=== PATIENT | male | born 1975 | race Caucasian/White ===

== ENCOUNTER → 2020-05-31 14:33 | Outpatient (CLI) | payer OTHER, SELFPAY ==
--- NOTE | ~2020-05-31 | MR_ITS ---
EXAMINATION: MR shoulder LT w con DATE: 05/31/2020 16:02 INDICATION: Left shoulder pain TECHNIQUE: Magnetic resonance imaging (MRI) of the left shoulder was performed following intra-artic ular gadolinium contrast injection and without intravenous contrast. Details of the glenohumeral join t injection have been dictated separately. Sequences included axial T2-weighted FS FSE, axial T1-anam ghted FS FSE, coronal oblique T1-weighted FS FSE, coronal oblique T2-weighted FSE, sagittal T2-weight ed FS FSE, sagittal T1-weighted FSE, and ABER (abduction external rotation) T1-weighted FS FSE. COMPARISON: None. FINDINGS: Coracoacromial arch: The acromion undersurface is curved in morphology (type II). The coracoacromial ligament is normal. Mild acromioclavicular osteoarthritis. Rotator cuff: Mild supraspinatus tendinopathy with shallow articular sided tear with fraying of the articular side of the tendon and thin linear contrast imbibition extending to the bursal side of the tendon without a large or well-defined measurable tear defect. The infraspinatus and teres minor tendons are normal. Mild contrast imbibition in the subscapularis tendon which appears otherwise normal and which is lik rose related to minimal extravasation at the site of injection. There is diffuse increased fluid signa l and minimal fatty atrophy of the infraspinatus muscle belly likely related to denervation change re sulting from impingement of the infraspinatus nerve by a large partially contrast filled paralabral c yst at the spinal glenoid notch which measures 2.6 x 2.6 x 1.6 cm. Remainder of the musculature of th e rotator cuff/shoulder girdle is normal. Biceps tendon, glenoid labrum and glenohumeral cartilage: Long head of the biceps tendon is intact. There is a tear of the glenoid labrum beginning anteriorly at the 1:00 position and extending posteriorly and inferiorly to the 8:00 position. The previous note d large paralabral cyst arises at the 9:30-10:00 position and extends medially across and inferomedia l to the spinoglenoid notch. There is partial thickness cartilage loss with smooth chondral surface a long the cephalad third of the glenoid. Bones and other: Normal marrow signal with no edema, fracture or abnormal marrow replacing process. No abnormal fluid signal in the subacromial/subdeltoid bursa to suggest bursitis. IMPRESSION: 1. SLAP tear of the 1:00-8:00 position of the superior and posterior glenoid labrum with large parala bral cyst arising at the 9:30-10:00 position which extends into the spinal glenoid notch and impinges upon the infraspinatus nerve as evidenced by denervation changes with mild increased fluid signal an d minimal atrophy of the infraspinatus muscle belly. 2. Mild supraspinatus tendinopathy with shallow articular sided tear/fraying. 3. Mild glenohumeral and acromioclavicular osteoarthritis. Reviewed, dictated and finalized at location A. IMPRESSION: 1. SLAP tear of the 1:00-8:00 position of the superior and posterior glenoid la emanuel with large paralabral cyst arising at the 9:30-10:00 position which extend s into the spinal glenoid notch and impinges upon the infraspinatus nerve as ev idenced by denervation changes with mild increased fluid signal and minimal atr ophy of the infraspinatus muscle belly. 2. Mild supraspinatus tendinopathy with shallow articular sided tear/fraying. 3. Mild glenohumeral and acromioclavicular osteoarthritis.
--- NOTE | ~2020-05-31 | XR_ITS ---
EXAMINATION: XR fl inj shoulder LT - MR/CT DATE: 05/31/2020 15:31 INDICATION: Left shoulder pain. No prior dislocation or surgery. TECHNIQUE: A time-out was performed to verify the patient's name, date of , and procedure to b e performed. The procedure including the risks, benefits, and alternatives was discussed with the pat ient. Risks discussed included bleeding and infection. The patient understood the risks and agreed to proceed. The skin overlying the left glenohumeral joint was prepped and draped in usual sterile fash ion. Anesthetic was administered with 1% lidocaine subcutaneously. A 22 G needle was advanced under fluoroscopic guidance into the joint. Subsequently, injectate consisting of 12 mL of 1:200 Multihan ce, 1:4 1% lidocaine, and 1:4 Omnipaque 240 was instilled. The needle was removed and the entry site was cleaned and dressed. There were no immediate complications. Fluoroscopy exposure time was 1.0 m inutes. The total number of images was 3. FINDINGS: Real-time fluoroscopy demonstrates the needle and contrast in the left glenohumeral joint. IMPRESSION: 1. Successful left glenohumeral joint injection of contrast for subsequent MR arthrography. Reviewed, dictated and finalized at location B. IMPRESSION: 1. Successful left glenohumeral joint injection of contrast for subsequent MR a rthrography.
== END ==
PROVIDERS: PCP Family Medicine; Visit Provider Orthopaedic Surgery
DX: M19.012 Primary osteoarthritis, left shoulder (principal); S43.432A Superior glenoid labrum lesion of left shoulder, initial encounter; X58.XXXA Exposure to other specified factors, initial encounter
CPT/HCPCS: 23350; 73222; A9577; Q9966

== ENCOUNTER → 2022-12-26 13:42 | Outpatient (CLI) | payer OTHER, SELFPAY ==
--- NOTE | ~2022-12-26 | XR_ITS ---
Right Knee Technique: AP, lateral, and oblique views were obtained. Clinical History: Pain Findings: No fracture or dislocation is seen. Osseous alignment is anatomic. Joint spaces are preserv ed without degenerative or erosive change. Soft tissues are unremarkable. No joint effusion is seen. Impression: Unremarkable right knee radiographs. Reviewed, dictated and finalized at [facility]. [employer] Impression: Unremarkable right knee radiographs.
== END ==
PROVIDERS: PCP Nurse Practitioner Family; Visit Provider Nurse Practitioner Family
DX: M25.561 Pain in right knee (principal)
CPT/HCPCS: 73564

== ENCOUNTER 2023-04-10 10:18 | Outpatient (CLI) | payer OTHER, SELFPAY ==
--- NOTE | 2023-05-01 16:49 | WPDHOMESLEEP ---
Sleep Study - Home Unattended Date of Study: 04/10/23 Ordering Provider: Yves Chiu MD Interpreting Provider: Christina Marshall MD Home Sleep Study Type: Watch PAT Height: 1.73 m Weight: 107.955 kg Body Mass Index: 36.1 Neck Circumference (inches): 17 [place]: 3 Reason for Sleep Study Hypersomnia, does not feel rested on waking Sleep History Shaun Almonte is a 48-year-old man with poor quality sleep. He works as a conductor/leading firefighter. he does not feel rested when he wakes in the morning. He had a sleep study through his dentist a few years ago which showed mild sleep apnea. He wants to be recheck for sleep apnea again. We do not have those prior sleep study records. He occasionally has fluttering in his chest and occasional indigestion. He does not wake to go to the bathroom at night. He does not have erectile dysfunction. He has a history of anxiety and depression as well as hypertension.He never awakens from sleep feeling short of breath. He never wakes at night with heartburn, belching or coughing.??He occasionally snores loudly enough that others complain. He never has trouble sleeping when he has a cold. He never wakes up gasping for breath during the night. He never has breathing problems at night. He rarely sweats excessively at night. He rarely notices his heart pounding or beating irregularly during the night. He never falls asleep involuntarily, never falls asleep while driving. He never experiences loss of muscle tone with strong emotion. He never has daytime difficulty at work due to excessive sleepiness. He feels paralyzed on waking or falling asleep. He never experiences vivid dreams upon waking or falling asleep. He never feels afraid of going to sleep. He rarely has nightmares. He rarely recalls his dreams. He has thoughts racing through his mind. He occasionally feels sad or depressed. He rarely feels anxiety. He never notices parts of his body jerk. He never kicks during the night. He never feels crawling or aching feelings in his legs. He never feels leg pain at night. He never has morning jaw pain, however he is not sure if he grinds his teeth at night. He rarely feels bothered by pain during the day, never awakened by pain during the night. He occasionally wakes up feeling stiff in the morning, and he occasionally wakes feeling sore or achy. He never awakens with pain in his neck, spine, or joints. Normal bedtime is between midnight and 1:00 a.m., falling asleep within 10 minute, usually not waking at all during the night. Wake time is between 8:00 a.m. and 10:00 a.m.. He typically gets between 6 and 8 hours of sleep per night. He takes an occasional nap in the day and a short nap lasting 10-15 minutes may be refreshing. He is usually drowsy for 1 hour after waking. Feels better in the afternoon compared to other times of day. Habits:??Tobacco: Former smoker, now he vapes Caffeine: 2-4 cups per day. Alcohol: 2-3 beverages per day Recreational substances: none PMFSH Past Medical History Medical History (Updated 05/01/23 @ 17:00 by Christina Marshall MD) Abnormal fasting glucose Glucose 87 with hemoglobin A1c 5.1 on 09/13/2021. Glucose 105 with hemoglobin A1c 5.0 on 04/04/2023. Abnormal serum iron level iron normal at 153 with 47% saturation on 09/13/2021. Blood typing encounter (09/13/21) blood type is O positive BMI 33.0-33.9,adult BMI 34.0-34.9,adult BMI 36.0-36.9,adult Chronic anxiety Chronic depression Colon cancer screening Encounter for prostate cancer screening PSA 1.24 on 09/13/2021. The PSA 1.53 on 04/04/2023. Encounter for wellness examination in adult Exposure to COVID-19 virus Furuncle of axilla Hypersomnia Hypertension Left shoulder pain Obesity (BMI 30-39.9) Obesity (BMI 30.0-34.9) Paresthesia Right knee pain STD exposure STD screening on 04/04/2023 was negative. Vaping nicotine dependence, non-tobacco product Family History Family History (Reviewed 04/30
[2023-05-01 17:05] VITALS: BMI 36.1
== END 2023-04-11 07:30 | disposition home or self-care (01) ==
LOC: ANHCSM 10:20
PROVIDERS: PCP Nurse Practitioner Family; Visit Provider Family Medicine
DX: G47.33 Obstructive sleep apnea (adult) (pediatric) (principal); G47.10 Hypersomnia, unspecified; F39 Unspecified mood [affective] disorder; E66.9 Obesity, unspecified; Z68.36 Body mass index [BMI] 36.0-36.9, adult
CPT/HCPCS: 95800

== ENCOUNTER 2024-09-30 08:44 | Outpatient (CLI) | payer OTHER, SELFPAY ==
--- NOTE | ~2024-09-30 | CT_ITS ---
EXAMINATION: CT chest abdomen pelvis w con DATE: 09/30/2024 14:58 CDT INDICATION: Abnormal weight loss TECHNIQUE: Computed tomography (CT) of the chest, abdomen, and pelvis was performed with intravenous contrast. The dose-length product was 813.01 mGy-cm. COMPARISON: None FINDINGS: CHEST CT: No enlarged mediastinal or hilar lymph nodes. Heart is unenlarged. Thoracic aorta is unremarkable. Tracheobronchial tree is patent. No pneumothorax. No pleural effusion. No pulmonary mass. No focal pulmonary consolidation. ABDOMEN/PELVIS CT: The liver, adrenal glands, spleen, pancreas and gallbladder are unremarkable. There are a few less than 8 mm nonobstructing right renal stones. Tiny nonobstructing left renal stone. No hydronephrosis. Abdominal aorta is not aneurysmal. No free fluid in the abdomen. No enlarged lymph nodes in the pelvis. Bladder is unremarkable. Prostate gland is mildly enlarged and partially calcified. No colitis. No appendicitis. No bowel obstruction. Bilateral pars defects at the L4 level with grade 1/2 anterolisthesis of L4 on L5. IMPRESSION: 1. Prostate gland is mildly enlarged partially calcified. 2. Bilateral pars defects at the L4 level with grade 1/2 anterolisthesis of L4 on L5. 3. Bilateral nonobstructing renal stones. Reviewed, dictated and finalized at location A.
--- OUTSIDE RECORDS SUMMARY | 2024-09-30 09:06 | XMS_ITS | Clinical Summary ---
Author Organization [facility] Address [id number] [place] [id number] Care Team Providers Care Power Press Tender Name Role Phone Yves Chiu MD Primary Care Provider [phone] Allergies No known active allergies Medications lisinopriL (PRINIVIL,ZESTR IL) 20 mg tabletIndicatio ns:hypertension Take 20 mg by mouth every morning 05/20/2020 Active ibuprofen (ADVIL,MOTRIN) 200 mg tab/cap Take 400 mg by mouth every 6 (six) hours as needed for pain Active garlic 100 mg tabletIndicatio ns:supplement Take 1 tablet by mouth every morning Active omega 1-eoo-qmj-fish oil (Fish Oil) 1,000 mg (120 mg-180 mg) capsule Take 1 capsule by mouth every morning Active oxyCODONE (ROXICODONE) 5 mg immediate release tabletIndicatio ns:Pain Take 1 tablet (5 mg total) by mouth every 4 (four) hours as needed for pain 40 tablet 06/22/2020 Active clindamycin (CLEOCIN) 300 mg capsule TAKE 1 CAPSULE BY MOUTH EVERY 8 HOURS 06/29/2020 Active Active Problems Problem Noted Date Diagnosed Date Superior labrum anterior-to- posterior (SLAP) tear of left shoulder 06/08/2020 Overview (06/08/2020): Added automatically from request for surgery [id number] Surgical History Surgery Date Site/Laterality Comments WISDOM TOOTH EXTRACTION Medical History Medical History Date Comments Sleep apnea very mild no CPA P HTN (hypertension) Family History Medical History Relation Name Comments Anesthesia problems Neg Hx Social History Tobacco Use Types Packs/Day Years Used Date Smoking Tobacco: Former Cigarettes 1 2017 Smokeless Tobacco: Never AUDIT-C Answer Date Recorded Q1: How often do you have a drink containing alcohol? 4 or more times a week 06/10/2020 Q2: How many drinks containi ng alcohol do you have on a typical day when you are drinking? 3 or 4 Q3: How often do you have si x or more drinks on one occasion? 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 Gender Identity Not on file Sexual Orientation Not on file Obstetrics History Last Filed Vital Signs Vital Sign Reading Time Taken Comments Blood Pressure 125/86 06/22/2020 11:10 AM CDT Pulse 71 06/22/2020 11:15 AM CDT Temperature 36.7 C (98.1 F) 06/22/2020 11:15 AM CDT Respiratory Rate 14 06/22/2020 11:15 AM CDT Oxygen Saturation 95% 06/22/2020 11:15 AM CDT Inhaled Oxygen Concentration - - Weight 95.3 kg (210 lb) 06/22/2020 6:36 AM CDT Height 172.7 cm (5' 8) 06/22/2020 6:36 AM CDT Body Mass Index 31.93 06/22/2020 6:36 AM CDT Plan of Treatment Not on file Medical Devices Implanted Type Area Upholstery Estimator Device Identifier Shelf Expiration Date Model / Serial / Lot [employer] [id number] Quattro Link 2.9mm Knotless Kenvir Suture Sterile Shoulder System - [id number] Implanted:Qty: 1 on 06/22/2020 by Jeffry Garcia MD at [facility] Left: Shoulder [employer] 03/04/2024 [id number] / / [id number] [employer] [id number] Juggerknot Maxbraid 2.9mm 2 Loaded Soft Tapered Needle 2 Kenvir - [id number] Implanted:Qty: 1 on 06/22/2020 by Jeffry Garcia MD at [facility] Left: Shoulder [employer] 02/01/2024 [id number] / / [id number] Insurance Care Teams Power Press Tender Relationship Specialty Start Date End Date Yves Chiu MD [address] [address] PCP - General Family Medicine 06/07/20
--- OUTSIDE RECORDS SUMMARY | 2024-09-30 09:06 | XMS_ITS | Encounter Summary ---
Author Organization [facility] Address [address] [place] [address] Phone Care Team Providers Care Community Midwife Name Role Phone Yves Chiu MD Primary Care Provider [phone] Encounter Details Date Type Department Care Team (Late st Contact Info) Description 06/23/2020 Documentation [facility] Orthopaedic Surgery [address] [facility] [address] [place] [address] [place] [id number] Suki Danielson RN Social History Tobacco Use Types Packs/Day Years Used Date Smoking Tobacco: Former Cigarettes 2017 Smokeless Tobacco: Never AUDIT-C Answer Date Recorded Q1: How often do you have a drink containing alcohol? 4 or more times a week 06/10/2020 Q2: How many drinks containi ng alcohol do you have on a typical day when you are drinking? 3 or 4 Q3: How often do you have si x or more drinks on one occasion? 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 [address] [place] [address] PCP - General Family Medicine 06/07/20 documented as of this encounter
[2024-09-30 09:27] LABS: Estimated Glomerular Filt Rate > 60
== END 2024-09-30 08:45 | disposition home or self-care (01) ==
PROVIDERS: PCP Family Medicine; Visit Provider Family Medicine
DX: N40.0 Benign prostatic hyperplasia without lower urinary tract symptoms (principal); N42.89 Other specified disorders of prostate; N20.0 Calculus of kidney; M43.16 Spondylolisthesis, lumbar region
CPT/HCPCS: 71260; 74177; Q9967